=== PATIENT | male | born 1960 | race American Indian/Alaskan Native ===

== ENCOUNTER 2018-08-16 10:30 | Emergency (ER) | payer OTHER ==
[2018-08-16] MEDS ORDERED: BOOSTRIX IM ONE (10:53)
[2018-08-16] MEDS ORDERED: ANCEF/NS 1 GM/50 ML 1 GM/50 ML BAG IV STA (10:59)
[2018-08-16] MEDS ORDERED: XYLOCAINE 1% 20 mL ONE (12:02)
[2018-08-16] MEDS ORDERED: NACL 0.9% 500 ML IR ONE (12:07)
--- NOTE | 2018-08-16 12:30 | Emergency Department Report ---
- General Chief Complaint: Wound/Laceration Stated Complaint: LFT HAND CUT/INJURY PAIN Time Seen by Provider: 08/16/18 10:53 Source: patient Mode of arrival: Ambulatory Limitations: No Limitations - History of Present Illness Initial Comments: 57-year-old male with laceration to left hand. Patient says he was attempting to remove a toilet bowl and cut his hand on the porcelain. Patient states he is right-handed. Tetanus immunization not up-to-date. -: This morning Extremity Location: Left: Hand Place: other ([facility]) Patient Tetanus UTD: No Context: accidental - Related Data Previous Rx's Medication Instructions Recorded Last Taken Type Cephalexin [Keflex] 500 mg PO BID #10 capsule 08/16/18 Unknown Rx Allergies Allergy/AdvReac Type Severity Reaction Status Date / Time No Known Allergies Allergy Unverified 08/16/18 10:31 ED Review of Systems ROS: Stated complaint: LFT HAND CUT/INJURY PAIN Other details as noted in HPI Comment: All other systems reviewed and negative Skin: other (reports laceration) Neurological: denies: paresthesias ED Past Medical Hx - Social History Smoking Status: Current Every Day Smoker - Medications Home Medications: Home Medications Medication Instructions Recorded Confirmed Last Taken Type Cephalexin [Keflex] 500 mg PO BID #10 capsule 08/16/18 Unknown Rx ED Physical Exam - General Limitations: No Limitations General appearance: alert, in no apparent distress - Head Head exam: Present: atraumatic, normocephalic - Eye Eye exam: Present: normal appearance - ENT ENT exam: Present: mucous membranes moist - Neck Neck exam: Present: normal inspection - Respiratory Respiratory exam: Present: normal lung sounds bilaterally. Absent: respiratory distress - Cardiovascular Cardiovascular Exam: Present: regular rate, normal rhythm - GI/Abdominal GI/Abdominal exam: Present: soft - Extremities Exam Extremities exam: Present: other (4 cm laceration to palmar aspect of base of left thumb; flexion/extension of thumb intact; sensation intact; active bleeding; cap refill nml) - Neurological Exam Neurological exam: Present: alert, oriented X3. Absent: motor sensory deficit - Psychiatric Psychiatric exam: Present: normal affect, normal mood - Skin Skin exam: Present: warm, dry ED Course Vital Signs 08/16/18 08/16/18 08/16/18 10:59 11:00 11:16 Pulse Rate 88 85 77 Respiratory 17 16 15 Rate Blood Pressure 169/94 Blood Pressure [Right] O2 Sat by Pulse 97 Oximetry 08/16/18 13:21 Pulse Rate 69 Respiratory 16 Rate Blood Pressure Blood Pressure 163/83 [Right] O2 Sat by Pulse 99 Oximetry - Laceration /Wound Repair Left Finger Wound Location: upper extremity Wound Length (cm): 4 Wound's Depth, Shape: linear Wound Explored: clean Irrigated w/ Saline (ccs): 60 Betadine Prep?: No Anesthesia: 1% Lidocaine Volume Anesthetic (ccs): 5 Wound Repaired With: sutures Suture Size/Type: 4:0, proline Number of Sutures: 7 Layer Closure?: No Sterile Dressing Applied?: Yes ED Medical Decision Making - Medical Decision Making Patient with active arterial bleeding from left thumb laceration. Pressure dressing applied x 1 hr. After removal, pt still having active bleeding, unable to located bleeding vessel even after inflating BP cuff and then slowly letting down. Another pressure dressing applied. Consult called to denzel Garcia. Upon his arrival, we removed pressure dressing again, no active bleeding this time. Recomended lac epair and placement of another pressure dressing. Seven sutures placed. Cap refill nml. No tendon involvement. Ancef received in ED. Will d/c home return instructions for suture removal. Critical Care Time: Yes Critical care time in (mins) excluding proc time.: 35 Critical care attestation.: If time is entered above; I have spent that time in minutes in the direct care of this critically ill patient, excluding procedure time. Critical Care Time: 35 minutes ED Disposition Clinical Impression: Laceration of hand Disposition: - TO HOME OR SELFCARE Is pt being admited?: No Condition: Stable Instructions: Suture Care (ED), Laceration (ED) Additional Instructions: Please return in 7-10 days or follow up with your primary care physician for suture removal. Prescriptions: Cephalexin [Keflex] 500 mg PO BID #10 capsule Referrals: PRIMARY CAREMD [Primary Care Provider] - 3-5 Days Time of Disposition: 12:59
[2018-08-16 13:21] VITALS: BP 163/83
[2018-08-16] MEDS ORDERED: NACL 0.9% IR ONE (16:36)
== END 2018-08-16 13:22 | disposition home or self-care (01) ==
LOC: ED 10:30
DX: S61.412A Laceration without foreign body of left hand, initial encounter (principal); F17.200 Nicotine dependence, unspecified, uncomplicated; W26.9XXA Contact with unspecified sharp object(s), initial encounter; Y93.89 Activity, other specified; Y92.89 Other specified places as the place of occurrence of the external cause; Y99.8 Other external cause status
CPT/HCPCS: 12002; 90471; 90715; 96365; 99291; J0690

== ENCOUNTER 2018-08-29 09:58 | Emergency (ER) | payer SELFPAY ==
--- NOTE | 2018-08-29 10:19 | Emergency Department Report ---
Suture/Staple Removal - [facility] Chief Complaint: Laceration/Recheck/Suture Stated Complaint: SUTURE REMOVAL Time Seen by Provider: 08/29/18 10:09 When Sutures or Sal Placed: 8-10 Days Ago Wound Location: L HAND ED Review of Systems ROS: Stated complaint: SUTURE REMOVAL Other details as noted in HPI Comment: All other systems reviewed and negative Constitutional: denies: chills Eyes: denies: eye pain ENT: denies: throat pain Respiratory: denies: cough Endocrine: denies: excessive sweating Gastrointestinal: denies: nausea Genitourinary: denies: urgency Musculoskeletal: denies: as per HPI Skin: lesions Neurological: denies: headache Psychiatric: denies: anxiety Hematological/Lymphatic: denies: easy bleeding ED Past Medical Hx - Past Medical History Previous Medical History?: No - Surgical History Past Surgical History?: No - Family History Family history: no significant - Social History Smoking Status: Current Every Day Smoker Substance Use Type: None - Medications Home Medications: Home Medications Medication Instructions Recorded Confirmed Last Taken Type Cephalexin [Keflex] 500 mg PO BID #10 capsule 08/16/18 Unknown Rx Suture Removal Exam - Exam General: Vital signs noted. No distress. Alert and acting appropriately. Wound: Yes Wound Dehiscence (WOUND BETWEEN THUMB AND INDEX FINGER. SMALL AREA NOT WELL APPROXIMATED), No Pathologic Erythema, No Tenderness, No Drainage, No Pus Other Systems: All other systems reviewed and are unremarkable. ED Course Vital Signs 08/29/18 10:07 Temperature 97.5 F L Pulse Rate 78 Respiratory 16 Rate Blood Pressure 124/64 O2 Sat by Pulse 99 Oximetry ED Recheck [facility] - Core Measures Measure Exclusions: not indicated - Differential Diagnosis Suture/Staple Removal - Medical Decision Making SUTURES REMOVED WOUND CLEANED STERI STRIPS APPLIED PT TAUGHT WOUND CARE Critical care attestation.: If time is entered above; I have spent that time in minutes in the direct care of this critically ill patient, excluding procedure time. ED Disposition Clinical Impression: Visit for suture removal Disposition: TO HOME OR SELFCARE Is pt being admited?: No Does the pt Need Aspirin: No Condition: Stable Instructions: Suture Removal (ED) Referrals: [facility] [Outside] - 3-5 Days Time of Disposition: 10:19
== END 2018-08-29 10:40 | disposition home or self-care (01) ==
LOC: ED 09:58